=== PATIENT | female | born 1945 | race Caucasian/White ===

== ENCOUNTER 2018-09-14 10:58 | Emergency (ER) | payer MEDICARE, BC ==
[~2018-09-14] VITALS: Ht 157.5 cm; Wt 57.0 kg
[2018-09-14] MEDS ORDERED: normal saline 1000ML IV soln IVB ONE (11:45)
[2018-09-14] MEDS ORDERED: ondansetron/PF 4mg/2ml inj IV ONE (11:45)
[2018-09-14] MEDS: morphine 4 MG/ML inj SYRINge IV PRN ×2 (12:01→14:29)
[2018-09-14 12:12] LABS: BASOPHILS # (AUTO) 0.1 X10'3 (0-0.2); BASOPHILS % (AUTO) 0.5 % (0-1); EOSINOPHILS % (AUTO) 0.1 % (0-6); HEMATOCRIT 44.3 % (35.0-45.0); HEMOGLOBIN 14.8 g/dl (12.0-16.0); LYMPHOCYTES # (AUTO) 0.7 X10'3 (1.1-4.8); LYMPHOCYTES % (AUTO) 5.6 % (21-51); MEAN CORPUSCULAR HEMOGLOBIN 29.3 PG (27.0-31.0); MEAN CORPUSCULAR HGB CONC 33.5 g/dL (33.0-36.5); MEAN CORPUSCULAR VOLUME 87.4 FL (78-98); MEAN PLATELET VOLUME 8.3 FL (7.4-10.4); MONOCYTES # (AUTO) 0.4 X10'3 (0-0.9); MONOCYTES % (AUTO) 3.5 % (2-12); NEUTROPHILS # (AUTO) 11.5 X10'3 (1.8-7.7); NEUTROPHILS % (AUTO) 90.3 % (42-75); PLATELET COUNT 448 X10'3 (140-440); RED BLOOD COUNT 5.07 X10'6 (4.20-5.60); RED CELL DISTRIBUTION WIDTH 13.7 % (11.5-14.5); WHITE BLOOD COUNT 12.7 X10'3 (4.5-11.0)
[2018-09-14 12:23] LABS: ALANINE AMINOTRANSFERASE 17 U/L (12-78); ALBUMIN 4.3 G/DL (3.4-5.0); ALBUMIN/GLOBULIN RATIO 1.3 (1.1-1.5); ALKALINE PHOSPHATASE 85 IU/L (46-116); ANION GAP 15 (8-16); ASPARTATE AMINO TRANSFERASE 13 U/L (10-37); BILIRUBIN,TOTAL 0.8 MG/DL (0.1-1.0); BLOOD UREA NITROGEN 10 MG/DL (7-18); BUN/CREATININE RATIO 14.1 (6.6-38.0); CALCIUM 9.2 MG/DL (8.5-10.1); CHLORIDE 99 MMOL/L (99-107); CREATININE 0.71 MG/DL (0.40-0.90); GLUCOSE 133 MG/DL (70-104); POTASSIUM 3.8 MMOL/L (3.5-5.1); SODIUM 136 MMOL/L (135-145); TOTAL CARBON DIOXIDE 22.2 MMOL/L (24-32); TOTAL PROTEIN 7.5 G/DL (6.4-8.2); eGFR 81 ML/MIN
[2018-09-14] MEDS ORDERED: ketorolac trometh. 30mg/ml inj. IV ONE (13:00)
--- NOTE | 2018-09-14 13:20 | NUR ---
pt urine not collected yet,order for ultrasound,will wait for that ,pt informed.deniesa ny discomfort.vitals stable.
--- NOTE | 2018-09-14 14:17 | NUR ---
pt assisted to restroom ,urine collected,pt at bedside,denies any concern,pt iv fluid infusing a sper md orders,will cont to monitor.
[2018-09-14] MEDS ORDERED: DOCU-148 PO (14:20)
[2018-09-14] MEDS ORDERED: ONDA4TAB6 PO (14:20)
[2018-09-14] MEDS ORDERED: NAPR-56 PO (14:20)
[2018-09-14] MEDS ORDERED: HYDR-4383 PO (14:20)
[2018-09-14 14:25] VITALS: BP 134/65
[2018-09-14 14:42] LABS: CLARITY,URINE CLEAR (Clear); COLOR,URINE YELLOW (Yellow); GLUCOSE, URINE NEGATIVE (Neg); KETONES,URINE 40 mg/dl (Neg); LEUKOCYTE ESTERASE ,URINE NEGATIVE (Neg); NITRITES, URINE NEGATIVE (Neg); OCCULT BLOOD,URINE TRACE-INTACT (Neg); PH,URINE 7.5 (4.8-8.0); PROTEIN,URINE NEGATIVE (Neg); UROBILINOGEN,URINE 0.2 E.U/dL (0.2-1.0)
[2018-09-14 14:43] LABS: UA COLLECTION TYPE CLN CATCH MIDSTREAM
[2018-09-14 14:48] LABS: BACTERIA,URINE NONE SEEN /HPF (Neg); MUCUS STRANDS NONE SEEN /LPF (Neg); SQUAMOUS EPITHELIAL CELL,UR FEW /LPF (FEW); WBC,URINE 0-4 /HPF (0-4)
== END 2018-09-14 15:07 | disposition home or self-care (01) ==
LOC: ER 10:59
DX: N83.201 Unspecified ovarian cyst, right side (principal); R11.2 Nausea with vomiting, unspecified; Z79.899 Other long term (current) drug therapy; Z98.890 Other specified postprocedural states
CPT/HCPCS: 36415; 74176; 76856; 80053; 81001; 85025; 96361; 96374; 96375; 96376; 99285; J1885; J2270; J2405; J7030; 99284

== ENCOUNTER 2018-09-24 06:54 | Day surgery (SDC) | payer MEDICARE, BC ==
[2018-09-23 14:25] LABS: BASOPHILS # (AUTO) 0.1 X10'3 (0-0.2); BASOPHILS % (AUTO) 1.5 % (0-1); EOSINOPHILS # (AUTO) 0.3 X10'3 (0-0.9); EOSINOPHILS % (AUTO) 4.2 % (0-6); LYMPHOCYTES # (AUTO) 1.4 X10'3 (1.1-4.8); LYMPHOCYTES % (AUTO) 19.1 % (21-51); MEAN CORPUSCULAR HEMOGLOBIN 29.6 PG (27.0-31.0); MEAN CORPUSCULAR HGB CONC 33.7 g/dL (33.0-36.5); MEAN CORPUSCULAR VOLUME 87.9 FL (78-98); MEAN PLATELET VOLUME 7.9 FL (7.4-10.4); MONOCYTES # (AUTO) 0.8 X10'3 (0-0.9); MONOCYTES % (AUTO) 10.5 % (2-12); NEUTROPHILS # (AUTO) 4.8 X10'3 (1.8-7.7); NEUTROPHILS % (AUTO) 64.7 % (42-75); PRE OP HEMATOCRIT 43.3 % (35.0-45.0); PRE OP HEMOGLOBIN 14.6 g/dL (12.0-16.0); PRE OP PLATELET COUNT 443 X10'3 (140-440); RED BLOOD COUNT 4.93 X10'6 (4.20-5.60); RED CELL DISTRIBUTION WIDTH 13.4 % (11.5-14.5)
[2018-09-23 14:32] LABS: CLARITY,URINE CLEAR (Clear); COLOR,URINE YELLOW (Yellow); GLUCOSE, URINE NEGATIVE (Neg); KETONES,URINE NEGATIVE (Neg); LEUKOCYTE ESTERASE ,URINE NEGATIVE (Neg); NITRITES, URINE NEGATIVE (Neg); OCCULT BLOOD,URINE TRACE-LYSED (Neg); PROTEIN,URINE NEGATIVE (Neg); UROBILINOGEN,URINE 0.2 E.U/dL (0.2-1.0)
[2018-09-23 14:41] LABS: ALBUMIN 4.2 G/DL (3.4-5.0); ALBUMIN/GLOBULIN RATIO 1.3 (1.1-1.5); ALKALINE PHOSPHATASE 86 IU/L (46-116); BLOOD UREA NITROGEN 7 MG/DL (7-18); CALCIUM 8.5 MG/DL (8.5-10.1); CHLORIDE 102 MMOL/L (99-107); PRE OP ALT 24 U/L (30-65); PRE OP ANION GAP 5 (8-16); PRE OP AST 9 U/L (10-37); PRE OP BILIRUB, TOTAL 0.3 MG/DL (0.0-1.0); PRE OP GLUCOSE 88 MG/DL (70-104); PRE OP POTASSIUM 3.9 MMOL/L (3.4-5.1); PRE OP SODIUM 138 MMOL/L (135-145); TOTAL CARBON DIOXIDE 30.8 MMOL/L (24-32); TOTAL PROTEIN 7.4 G/DL (6.4-8.2); eGFR 82 ML/MIN
[2018-09-23 14:51] LABS: UA COLLECTION TYPE NON-SPECIFIED
[2018-09-23 14:56] LABS: BACTERIA,URINE NONE SEEN /HPF (Neg); RBC,URINE NONE SEEN /HPF (0-2); SQUAMOUS EPITHELIAL CELL,UR FEW /LPF (FEW); WBC,URINE NONE SEEN /HPF (0-4)
[~2018-09-24] VITALS: Ht 157.5 cm; Wt 55.9 kg
[2018-09-24] VITALS (22 sets, daily range): BP systolic 127–158; BP diastolic 55–89
[~2018-09-24 06:54] MED LIST: BUPIVAcaine/PF 2.5 mg/ml (0.25%) 30ml vial ONE; FEXO1TAB8 PO; LACT1CAP65 PO; MULT-933 PO
[2018-09-24] MEDS ORDERED: ceFOXitin 2 GM ADDVANTGE BAG 50 ML IV ONE (07:00)
[2018-09-24] MEDS ORDERED: tranexamic acid inj. 1,000 MG in normal saline 100 ML IV ONE (07:00)
[2018-09-24] MEDS ORDERED: famotidine 20mg tablet PO ONE (07:00)
[2018-09-24] MEDS ORDERED: ringers solution, lacted 1,000 ML IV SCH ×2 (07:00→09:52)
[2018-09-24] MEDS ORDERED: rocuronium 10mg/ml inj IV ONE (08:35)
[2018-09-24] MEDS ORDERED: fentaNYL/PF 50MCG/1 ML 2ML syringe ONE (08:35)
[2018-09-24] MEDS ORDERED: propofol inj 20 ML IV ONE (08:35)
[2018-09-24] MEDS ORDERED: sevoflurane 250ml liquid IH ONE (08:51)
[2018-09-24] MEDS ORDERED: proCHLORperazine 10 MG/2 ml inj IV PRN (09:55)
[2018-09-24] MEDS ORDERED: meperidine/PF 25mg/ml syringe IV PRN ×3 (09:55)
[2018-09-24] MEDS ORDERED: ondansetron/PF 4mg/2ml inj IV PRN (09:55)
[2018-09-24] MEDS ORDERED: morphine 4 MG/ML inj SYRINge IV PRN ×2 (09:55)
[2018-09-24] MEDS ORDERED: dexamethasone sod phosphate 4mg/ml inj. ONE (10:17)
[2018-09-24] MEDS ORDERED: ondansetron/PF 4mg/2ml inj ONE (10:18)
[2018-09-24] MEDS ORDERED: acetaminophen 1,000mg/100ml IV 100 ML IV ONE (10:18)
[2018-09-24] MEDS ORDERED: glycopyrrolate 0.2mg/ml inj ONE (10:19)
[2018-09-24] MEDS ORDERED: neostigmine methylsulfate 1 MG/ML 10ml vial ONE (10:19)
--- NOTE | 2018-09-24 10:44 | NUR ---
Received from OR via [facility], accompanied by Anesthesiologist DR JANSEN and report given by Anesthesiologist. PT DROWSY, DENIES PAIN, ABDOMEN W/3 LAP SITES W/DERMABOND, CDI, PATTI PAD IN PLACE, CDI. Addendum: 09/24/18 at 1107 by Myrna Mata RN Amended: Links added.
--- NOTE | 2018-09-24 16:44 | NUR ---
PT FINALLY ABLE TO VOID, DR RAY BORJA, D/C INSTRUCTIONS GIVEN AND GONE OVER W/PT AND PTS , BOTH VERBALIZED UNDERSTANDING, PT D/CD TO HOME VIA W/C TO PRIVATE VEHICLE W/O INCIDENT. Addendum: 09/24/18 at 1659 by Myrna Mata RN Amended: Links added.
== END 2018-09-24 16:44 | disposition home or self-care (01) ==
LOC: PAS 06:54
PROVIDERS: ATTEND Obstetrics & Gynecology
DX: D27.0 Benign neoplasm of right ovary (principal); N83.511 Torsion of right ovary and ovarian pedicle; Z98.890 Other specified postprocedural states; Z98.49 Cataract extraction status, unspecified eye; Z80.8 Family history of malignant neoplasm of other organs or systems; Z88.8 Allergy status to other drugs, medicaments and biological substances
CPT/HCPCS: 36415; 58661; 80053; 81001; 82948; 85025; 85610; 85730; 93005; C1758; J0131; J0694; J1100; J2405; J2704; J2710; J3010; J3490; J7120; S2900; A4618; A7000